=== PATIENT | female | born 1965 | race African-American/Black ===

== ENCOUNTER 2019-07-30 17:26 | Emergency (ER) | payer MEDICARE ==
[2019-07-30] MEDS ORDERED: Ibuprofen 800 MG TAB ONE (18:02)
--- NOTE | 2019-07-30 18:21 | RAD ---
Exam:3 views right shoulder HISTORY: Pain. Injury. COMPARISON: None FINDINGS: Preserved glenohumeral joint space. No fracture or dislocation. Visualized right ribs appea r to be intact. There appears to be remote injury involving the right eighth rib. Correlate clinically for point tenderness. IMPRESSION: 1. No evidence of an acute fracture. Remote right eighth rib fracture suspected. Correlate clinically .
== END 2019-07-30 18:38 | disposition home or self-care (01) ==
LOC: MADERS 17:26
DX: S43.401A Unspecified sprain of right shoulder joint, initial encounter (principal); W01.0XXA Fall on same level from slipping, tripping and stumbling without subsequent striking against object, initial encounter; Y93.01 Activity, walking, marching and hiking; Y92.029 Unspecified place in mobile home as the place of occurrence of the external cause

== ENCOUNTER 2019-12-20 08:59 | Emergency (ER) | payer MEDICARE ==
[2019-12-20] MEDS ORDERED: Clindamycin 150 MG CAP ONE (09:37)
[2019-12-20] MEDS ORDERED: Ibuprofen 800 MG TAB ONE (09:37)
== END 2019-12-20 09:41 | disposition home or self-care (01) ==
LOC: MADERS 08:59
DX: K04.7 Periapical abscess without sinus (principal); K02.9 Dental caries, unspecified
CPT/HCPCS: 99282

== ENCOUNTER 2020-08-22 11:16 | Emergency (ER) | payer MEDICARE | END 2020-08-22 12:10 | disposition home or self-care (01) | LOC: MADERS 11:16 | DX: S01.01XA Laceration without foreign body of scalp, initial encounter (principal); S80.811A Abrasion, right lower leg, initial encounter; W22.8XXA Striking against or struck by other objects, initial encounter | CPT/HCPCS: 12001 ==